=== PATIENT | female | born 1990 | race Two or more races ===

== ENCOUNTER 2023-02-28 17:38 | Emergency (ER) | payer OTHER ==
[~2023-02-28] VITALS: Ht 160 cm; Wt 57.6 kg
== END 2023-02-28 19:01 | disposition home or self-care (01) ==
LOC: ER 17:39
DX: J00 Acute nasopharyngitis [common cold] (principal); Z20.822 Contact with and (suspected) exposure to COVID-19

== ENCOUNTER 2023-03-02 15:20 | Emergency (ER) | payer OTHER ==
[~2023-03-02] VITALS: Ht 160 cm; Wt 57.6 kg
[2023-03-02 17:38] LABS: HEMATOCRIT 37.1 % (36.0-45.00); HEMOGLOBIN 12.9 g/dL (12.0-15.00); MEAN CORPUSCULAR HEMOGLOBIN 28.2 pg (27.00-32.0); MEAN CORPUSCULAR HGB CONC 34.8 g/dl (32.0-36.0); PLATELET COUNT 206 K/uL (150-450); RED BLOOD COUNT 4.58 M/uL (4.00-6.00); RED CELL DISTRIBUTION WIDTH 13.6 % (11.5-14.5)
[2023-03-02] MEDS ORDERED: FLONASE16 GM NASAL (18:24)
[2023-03-02] MEDS ORDERED: ZYRTEC10 MG PO (18:24)
[2023-03-02] MEDS ORDERED: SALINE NASAL SP88 ML NASAL (18:24)
== END 2023-03-02 18:49 | disposition home or self-care (01) ==
LOC: ER 15:21
PROVIDERS: Nurse Practitioner Family
DX: J00 Acute nasopharyngitis [common cold] (principal); J06.9 Acute upper respiratory infection, unspecified; Z20.822 Contact with and (suspected) exposure to COVID-19

== ENCOUNTER 2023-05-18 10:50 | Outpatient (CLI) | payer OTHER ==
[~2023-05-18 10:50] MED LIST: FLONASE16 GM NASAL; SALINE NASAL SP88 ML NASAL; ZYRTEC10 MG PO
== END 2023-05-18 11:00 | disposition home or self-care (01) ==
LOC: PPH VACUNA 10:50
PROVIDERS: ATTEND Emergency Medicine Pediatric Emergency Medicine
DX: Z23 Encounter for immunization (principal)